=== PATIENT | female | born 1990 | race Caucasian/White ===

== ENCOUNTER → 2020-11-15 15:40 | Outpatient (CLI) | payer OTHER, SELFPAY ==
[2020-11-15 14:20] VITALS: BMI 27.7
[2020-11-15 15:55] LABS: Absolute Lymphocyte Count 2.31 X10^3/uL (0.83-4.51); Basophil# 0.06 X10^3/uL; Basophil% 0.7 % (0-1); Eosinophil# 0.12 X10^3/uL; Eosinophils% 1.5 % (0-5); Hematocrit 39.3 % (37-47); Hemoglobin 13.2 g/dL (12.0-15.0); Lymphocyte # 2.31 X10^3/ul (0.83-4.51); Lymphocyte % 28.4 % (19-41); Mean Corp Hgb Conc 33.6 g/dL (32-36); Mean Corpuscular Hgb 28.4 pg (27.0-32.0); Mean Corpuscular Volume 84.7 fL (81-99); Mean Platelet Vol. 10.4 fl (6.2-12.0); Monocyte# 0.63 X10^3/uL; Monocyte% 7.7 % (0-10); NRBC Flagged by Analyzer 0 % (0-5); Neutrophil % 61.5 % (47-70); Platelet Count 257 K/mm3 (150-450); RBC Distribution Width CV 12.3 % (11.6-14.6); RBC Distribution Width SD 37.9 fl (35.1-43.9); Red Blood Count 4.64 M/mm3 (4.2-5.4); White Blood Count 8.1 K/mm3 (4.4-11.0)
[2020-11-15 18:37] LABS: Amphetamine Urine VISTA NEGATIVE (<1000 ng/mL); Barbiturate Urine VISTA NEGATIVE (< 200 ng/mL); Benzodiazepine Urine VISTA NEGATIVE (< 200 ng/mL); Cocaine Urine VISTA NEGATIVE (< 300 ng/mL); Ecstacy Urine VISTA NEGATIVE (< 500 ng/mL); Methadone Urine VISTA NEGATIVE (< 300 ng/mL); PCP Urine VISTA NEGATIVE (< 25 ng/mL); THC Urine VISTA NEGATIVE (< 50 ng/mL); Vista UDS pH Range 5
[2020-11-16 09:20] LABS: HIV - WCH Non-Reactive (Nonreactive); Hepatitis B Surface Antigen Non-Reactive (Nonreactive); Hepatitis C Antibody Non-Reactive (Nonreactive); Rubella IgG Reactive (Nonreactive); Syphilis Antibodies Non-reactive
[2020-11-19 20:07] LABS: Chlamydia By Nucleic Acid AMP Negative (Negative)
[2020-11-19 20:32] LABS: Gonococcus By Nucleic Acid AMP Negative (Negative)
[2020-11-21 12:38] LABS: HPV APTIMA, High Risk Negative (Negative)
== END ==
PROVIDERS: PCP Family Medicine; Referring Provider Obstetrics & Gynecology; Visit Provider Obstetrics & Gynecology
DX: Z34.90 Encounter for supervision of normal pregnancy, unspecified, unspecified trimester (principal)
CPT/HCPCS: 36415; 80307; 85025; 86703; 86762; 86780; 86803; 86850; 86900; 86901; 87086; 87088; 87340; 87491; 87591; 87624; 88175; G0145

== ENCOUNTER → 2021-03-21 08:42 | Outpatient (CLI) | payer OTHER, SELFPAY ==
[2021-03-21 09:07] LABS: Basophil# 0.07 X10^3/uL; Basophil% 0.7 % (0-1); Eosinophil# 0.15 X10^3/uL; Eosinophils% 1.6 % (0-5); Hematocrit 33.2 % (37-47); Hemoglobin 11.5 g/dL (12.0-15.0); Lymphocyte % 16.8 % (19-41); Mean Corp Hgb Conc 34.6 g/dL (32-36); Mean Corpuscular Hgb 30.1 pg (27.0-32.0); Mean Corpuscular Volume 86.9 fL (81-99); Mean Platelet Vol. 10.2 fl (6.2-12.0); Monocyte# 0.66 X10^3/uL; Monocyte% 6.9 % (0-10); NRBC Flagged by Analyzer 0 % (0-5); Neutrophil # 6.95 X10^3/uL (2.7-7.7); Neutrophil % 73.2 % (47-70); Platelet Count 210 K/mm3 (150-450); RBC Distribution Width CV 13.2 % (11.6-14.6); RBC Distribution Width SD 41.4 fl (35.1-43.9); Red Blood Count 3.82 M/mm3 (4.2-5.4); White Blood Count 9.5 K/mm3 (4.4-11.0)
[2021-03-21 09:19] LABS: Glucose Challenge Gest 1H 50g 98 mg/dL (70-140)
== END ==
PROVIDERS: PCP Family Medicine; Referring Provider Obstetrics & Gynecology; Visit Provider Obstetrics & Gynecology
DX: Z13.1 Encounter for screening for diabetes mellitus (principal); Z34.00 Encounter for supervision of normal first pregnancy, unspecified trimester
CPT/HCPCS: 36415; 82950; 85025

== ENCOUNTER → 2021-04-04 12:30 | Outpatient (CLI) | payer OTHER, SELFPAY ==
--- NOTE | 2021-04-04 12:31 | US_ITS ---
STUDY: SECOND AND THIRD TRIMESTER OBSTETRICAL ULTRASOUND - LIMITED REASON FOR EXAM: Female, 31 years old growth, check ovarian cysts - pt 28 weeks LMP: 09/06/2020. PRIOR ULTRASOUND: None. TECHNIQUE: Transabdominal TECHNICAL QUALITY: Adequate. FINDINGS: There is a single intrauterine fetus. The fetus is in a cephalic presentation. There is demonstrated cardiac activity with a heart rate of 136 bpm. There is a normal amniotic fluid volume. The largest amniotic fluid pocket measures 6.7 cm. The amniotic fluid index ([place]) is 22.3 cm. The placenta is posterior in location and is not low lying. There are Grade 0 placental changes. The cervix measures 4.3 cm in length. BIOMETRY: BPD: 7.97 cm: 31 weeks, 6 days HC: 28.31 cm: 31 weeks, 0 days AC: 27.12 cm: 31 weeks, 1 days FL: 5.55 cm: 29 weeks, 1 days Age by LMP: 30 weeks, 0 days. BATSHEVA by LMP: 06/13/2021. age by current US: 30 weeks, 3 days. BATSHEVA by current US: 06/10/2021. Estimated weight: 1642 grams, +/- 246 grams, 66 percentile. The right ovary measures 4.8 cm x 2.3 cm x 3.1 cm. The left ovary measures 8.7 cm x 4.9 cm x 4.1 cm. Within it, there is a 7.5 cm x 7.6 cm by 3.1 cm complex cyst. US/OB Limited With Biometrics IMPRESSION: Single live intrauterine gestation with a mean gestational age of 30 weeks and 3 days. 7.5 cm x 7.6 cm x 3.1 cm left complex ovarian cyst. Electronically Signed: Justin Medina MD at 15:22 EDT , Service support ,
== END ==
PROVIDERS: PCP Family Medicine; Referring Provider Nurse Practitioner Women's Health; Visit Provider Nurse Practitioner Women's Health
DX: O34.83 Maternal care for other abnormalities of pelvic organs, third trimester (principal); N83.202 Unspecified ovarian cyst, left side; Z3A.30 30 weeks gestation of pregnancy
CPT/HCPCS: 76816

== ENCOUNTER → 2021-04-25 15:12 | Outpatient (CLI) | payer OTHER, SELFPAY ==
[2021-04-25 15:33] LABS: Absolute Lymphocyte Count 1.44 X10^3/uL (0.83-4.51); Basophil# 0.06 X10^3/uL; Basophil% 0.6 % (0-1); Eosinophil# 0.05 X10^3/uL; Eosinophils% 0.5 % (0-5); Hematocrit 36.6 % (37-47); Hemoglobin 12.4 g/dL (12.0-15.0); Lymphocyte # 1.44 X10^3/ul (0.83-4.51); Lymphocyte % 15.2 % (19-41); Mean Corp Hgb Conc 33.9 g/dL (32-36); Mean Corpuscular Hgb 29.5 pg (27.0-32.0); Mean Corpuscular Volume 87.1 fL (81-99); Mean Platelet Vol. 10.2 fl (6.2-12.0); Monocyte# 0.91 X10^3/uL; Monocyte% 9.6 % (0-10); NRBC Flagged by Analyzer 0 % (0-5); Neutrophil # 6.98 X10^3/uL (2.7-7.7); Neutrophil % 73.5 % (47-70); Platelet Count 212 K/mm3 (150-450); RBC Distribution Width CV 13.1 % (11.6-14.6); RBC Distribution Width SD 41.6 fl (35.1-43.9); White Blood Count 9.5 K/mm3 (4.4-11.0)
== END ==
PROVIDERS: PCP Family Medicine; Referring Provider Nurse Practitioner Women's Health; Visit Provider Nurse Practitioner Women's Health
DX: O26.899 Other specified pregnancy related conditions, unspecified trimester (principal); R10.2 Pelvic and perineal pain; Z3A.00 Weeks of gestation of pregnancy not specified
CPT/HCPCS: 36415; 85025

== ENCOUNTER → 2021-04-25 15:57 | Outpatient (CLI) | payer OTHER, SELFPAY ==
--- NOTE | 2021-04-25 15:58 | US_ITS ---
STUDY: SECOND AND THIRD TRIMESTER OBSTETRICAL ULTRASOUND - LIMITED REASON FOR EXAM: Female, 31 years old. Rule out ovarian torsion. Left lower quadrant pain. LMP: 09/06/2020. PRIOR ULTRASOUND: 04/04/2021 TECHNIQUE: Transabdominal TECHNICAL QUALITY: Adequate. FINDINGS: There is a single intrauterine fetus. The fetus is in a cephalic presentation. There is demonstrated cardiac activity with a heart rate of 1:30 bpm. There is a normal amniotic fluid volume. The largest amniotic fluid pocket measures 7.7 cm. The amniotic fluid index ([place]) is 20.38 cm. The placenta is posterior in location and is not low lying. There are Grade 1 placental changes. The cervix measures 4.1 cm in length. The right ovary measures 3.9 x 3.4 x 2.4 cm. And contains a complex 2.3 x 2.7 x 1.4 cm cyst. There is normal DOPPLER signal. The left ovary measures 6.3 x 4.5 x 2.8 cm. And contains a hypoechoic area measuring 5.5 x 3.9 x 2.3 cm. Question chocolate cyst. Normal vascularity on DOPPLER imaging Age by LMP: 33 weeks, 0 days. BATSHEVA by LMP: 06/13/2021. age by prior US: 33 weeks, 3 days. BATSHEVA by prior US: 06/10/2021. US/OB Limited (No Biometrics) IMPRESSION: 1. Prominent cystic changes of both ovaries. There is no evidence of torsion. 2. Live single intrauterine 33 weeks 3 days by prior ultrasound. 3. VERTEX presentation. 4. [place] of 20.38 cm. 5. Posterior grade 1 placenta. Electronically Signed: James Chan DO at 16:57 EDT Tel [phone], Service support ,
== END ==
PROVIDERS: PCP Family Medicine; Referring Provider Nurse Practitioner Women's Health; Visit Provider Nurse Practitioner Women's Health
DX: N83.202 Unspecified ovarian cyst, left side (principal)
CPT/HCPCS: 76815; 76817

== ENCOUNTER → 2021-05-16 11:37 | Outpatient (CLI) | payer OTHER, SELFPAY | PROVIDERS: PCP Family Medicine; Visit Provider Obstetrics & Gynecology | DX: Z34.93 Encounter for supervision of normal pregnancy, unspecified, third trimester (principal); Z3A.36 36 weeks gestation of pregnancy | CPT/HCPCS: 87081 ==

== ENCOUNTER 2021-06-20 19:05 | Inpatient (IN) | payer OTHER, SELFPAY ==
[2021-06-20 19:44] VITALS: BP 124/75; PULSE 109
[2021-06-20 19:45] VITALS: TEMP 37.5
[2021-06-20 19:46] VITALS: PULSE 109; O2SAT 96
[2021-06-20 19:48] VITALS: BMI 33.7
[2021-06-20] MEDS: Lactated Ringers 1,000 ML 50 ML IV (19:56)
[2021-06-20 20:25] LABS: Absolute Lymphocyte Count 2.47 X10^3/uL (0.83-4.51); Absolute Neutrophil Count 7.9 X10^3/uL (2.0-7.7); Basophil# 0.06 X10^3/uL; Basophil% 0.5 % (0-1); Eosinophil# 0.06 X10^3/uL; Eosinophils% 0.5 % (0-5); Hematocrit 34.8 % (37-47); Hemoglobin 12.6 g/dL (12.0-15.0); Lymphocyte # 2.47 X10^3/ul (0.83-4.51); Lymphocyte % 21.4 % (19-41); Mean Corp Hgb Conc 36.2 g/dL (32-36); Mean Corpuscular Hgb 30.8 pg (27.0-32.0); Mean Corpuscular Volume 85.1 fL (81-99); Mean Platelet Vol. 10.8 fl (6.2-12.0); Monocyte# 0.91 X10^3/uL; Monocyte% 7.9 % (0-10); NRBC Flagged by Analyzer 0 % (0-5); Neutrophil # 7.94 X10^3/uL (2.7-7.7); Neutrophil % 68.9 % (47-70); Platelet Count 235 K/mm3 (150-450); RBC Distribution Width CV 13.1 % (11.6-14.6); RBC Distribution Width SD 40.4 fl (35.1-43.9); Red Blood Count 4.09 M/mm3 (4.2-5.4); White Blood Count 11.5 K/mm3 (4.4-11.0)
[2021-06-20] MEDS: miSOPROStol 25 MCG TABLET VAGINAL (20:36)
[2021-06-20 21:04] VITALS: BP 121/79; PULSE 85; TEMP 37.1; O2SAT 98
[2021-06-21] VITALS (40 sets, daily range): BP systolic 95–146; BP diastolic 53–85; PULSE 65–111; TEMP 35.9–37.4; O2SAT 96–100
[2021-06-21] MEDS: miSOPROStol 50 MCG TABLET VAGINAL (00:38)
[2021-06-21] MEDS: 0.9% Normal Saline Single 100 ML IV.SOLN. INTRA-UTER (07:33)
[2021-06-21] MEDS: Oxytocin 30 units/NS 500 ml 30 UNITS/500 ML IV.SOLN IV (08:50)
[2021-06-21] MEDS: 0.9% Saline Lock 10 ML Syringe IV (08:50)
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
[2021-06-21] MEDS: Lactated Ringers 500 ML 999 ML IV ×3 (14:50→20:25)
[2021-06-21] MEDS: fentaNYL-bupivacaine (epidural) 100 ML BAG EPIDURAL ×2 (15:50→20:30)
[2021-06-21] MEDS: Lactated Ringers 1,000 ML 200 ML IV (18:41)
[2021-06-22] VITALS (24 sets, daily range): BP systolic 98–133; BP diastolic 51–75; PULSE 81–169; RESP 16; TEMP 35.8–37.9; O2SAT 96–100
[2021-06-22] MEDS: fentaNYL-bupivacaine (epidural) 100 ML BAG EPIDURAL ×2 (00:59→06:46)
--- NOTE | 2021-06-22 03:57 | EX.PCM.OBRPT ---
Assessment & Plan (1) : QUALIFIERS: Weeks of gestation: 40 weeks Qualified Code(s): Z3A.40 - 40 weeks gestation of COMMENT: declined genetic, ntd and carrier. anatomy reviewed. (2) Supervision of normal first : QUALIFIERS: Trimester: third trimester Qualified Code(s): Z34.03 - Encounter for supervision of normal first , third trimester COMMENT: PRR BATSHEVA: 06/13/2021 surprise Spouse: Brayan (3) Echogenic focus of heart of fetus affecting antepartum care of mother: QUALIFIERS: Fetus number: single or unspecified fetus Qualified Code(s): O35.8XX0 - Maternal care for other (suspected) abnormality and damage, not applicable or unspecified COMMENT: declined nipt (4) Left ovarian cyst: COMMENT: rpt US showed stable now 5 cm suspect endometrioma, preivous 7.8cm, growth nl, plan fu removal 6 week+ (5) Pelvic pain affecting : COMMENT: tylenol, flexeril PRN, chiropractor and massage therapy recommended, nl ovarian blood flow on US. reviewed may need ct abdmn pelvis if recurrent (6) Encounter for induction of labor: COMMENT: plan 41 week IOL cytotec then fb/pitocin. epi PRN (7) Vaginal delivery: COMMENT: iol postdates SM Maternal Data Information BATSHEVA Calculator Estimated Delivery Date Method Current WG Current Estimate 06/13/21 LMP (Certain) 41w 2d Vaginal Delivery Maternal Presentation Maternal Presentation: Medically Indicated Induction Maternal Presentation: IOL postdates Type of Induction: Pitocin, Marcus Bulb and Cytotec Operative Information Date of Procedure: 06/22/21 Pre-Operative Diagnosis: IOL postdates Post-Operative Diagnosis: same Surgery / Procedure Performed: Spontaneous Vaginal Delivery Type of Anesthesia: Epidural Special Medications: none Estimated Blood Loss: 300 Fluids Replaced: crystalloid Findings Description of Procedure: Patient began pushing and after almost 4 hours of pushing there was signifciant swellign in the perineum so a right mediolateral episiotomy was cut and she delivered the head in the [YARED] presentation. The head was delivered atraumatically . The anterior and posterior shoulders delivered without complication followed by the rest of the infant and the was placed on the maternal abdomen. Delayed cord clamping was employed for approximately 60 seconds. Cord was clamped and cut and gentle traction was applied to the cord and the placenta delivered spontaneously immediately following it was noted to be intact with three-vessel cord. The perineum and vagina were inspected and noted to have no extension of the episiotomy and therefore it was repaired in the usual fashion with 3-0 Vicryl Rapide. EBL was 300. Patient and tolerated delivery well. Presentation: YARED Amniotic Membrane Rupture Type: Artificial Amniotic Fluid Description: Clear Placental Delivery Description: Spontaneous Placenta Disposition: [facility] Cord Vessel Description: 3 Vessels Cord Entanglement: None Infant A Gender: Female Delayed Cord Clamping: Yes Post Vaginal Delivery Medications Given After Delivery: IV Pitocin Episiotomy Description: Right Mediolateral Laceration: Right Mediolateral and 2nd degree Complication Complications: None Procedures Urinary/Genital [id number]: [id number] Vaginal Delivery [facility]
--- NOTE | 2021-06-22 04:00 | PCM.DC ---
Discharge Instructions Diet Discharge Diet: No restrictions Activity Discharge Activity: Return to Normal Activity, May Not Drive (while taking narcotic pain medications.) and May Shower May resume sexual activity in: 4-6 weeks Dressing / Incision Call your doctor if your incision/area has: Continuous Slow Oozing, Sudden Increased Bleeding, Increased Pain/ Swelling, Increased Redness and Foul Smelling Discharge Follow Up Care Please Follow Up With: Tiffany Scott MD When: Call [phone] to make an appointment with your doctor in 6 weeks. If you had elevated blood pressure or 4th degree laceration, you will need to be seen in 2 weeks. Test Results: Test results from this visit will be discussed in further detail at your follow-up appointment, if applicable. Discharge Plan Admission Admit Date/Time: 06/20/21 19:05 Primary Reason for Your Visit: vaginal delivery Attending Provider: Tiffany Scott Primary Care Provider: Jose Allen Discharge Orders/Prescriptions Prescriptions: No Action DHA 200 mg capsule 200 mg PO DAILY RF: 0 Referrals / Follow Up: Jose Allen MD [Primary Care Provider] - Disposition Disposition (needs filled in before D/C Order can be placed): Home, Self Care
[2021-06-22] MEDS: Lactated Ringers 1,000 ML 200 ML IV ×2 (05:08)
[2021-06-22] MEDS: Oxytocin 30 units/NS 500 ml 30 UNITS/500 ML IV.SOLN 334 UNITS IV (07:46)
[2021-06-22] MEDS: Acetaminophen 500 MG Tablet PO (08:26)
[2021-06-22] MEDS: Naproxen 500 MG Tablet PO ×2 (10:16→18:00)
[2021-06-22] MEDS: Benzocaine/Lanolin/Aloe Vera 1 SPRAY EACH TOPICAL (10:51)
[2021-06-22] MEDS: Acetaminophen 500 MG Tablet 1000 MG PO ×2 (14:05→20:31)
[2021-06-23] VITALS (9 sets, daily range): BP systolic 93–127; BP diastolic 51–65; PULSE 73–86; RESP 14–16; TEMP 36.1–36.6; O2SAT 98–99
[2021-06-23] MEDS: Naproxen 500 MG Tablet PO (07:05)
--- NOTE | 2021-06-23 07:05 | PCM.PN.OB ---
Subjective Subjective Patient doing well without complaints. Tolerating PO. Ambulating and voiding without difficulty. feeding well. Denies chest pain, shortness of breath, calf pain/swelling, fevers, chills, lightheadedness. Objective Data Objective Data Vital Signs: Vital Signs Temp Pulse Resp BP Pulse Ox 97.9 F 83 16 127/62 H 98 06/23/21 04:45 06/23/21 04:46 06/23/21 04:45 06/23/21 04:46 06/22/21 08:01 Oxygen Delivery Method Room Air Weight: 184 lb 12.8 oz Body Mass Index (BMI) 33.7 Intake & Output: Intake and Output for Last 24 Hours 06/21/21 06/22/21 06/23/21 23:59 23:59 23:59 Intake Total 2869.87 / 3483.20 2759.29 / 2759.29 Output Total 500 / 500 950 / 950 Balance 2369.87 / 2983.20 1809.29 / 1809.29 Lab / Micro Data Result Diagrams: 06/20/21 19:55 ROS Constitutional Constitutional: Reports systems reviewed and no addt'l complaints, except as documented Cardiovascular Cardiovascular: Reports systems reviewed and no addt'l complaints, except as documented Respiratory/Chest Respiratory/Chest: Reports systems reviewed and no addt'l complaints, except as documented Gastrointestinal Gastrointestinal: Reports systems reviewed and no addt'l complaints, except as documented Physical Exam Const alert, oriented x3 and no apparent distress HEENT Head and Scalp: atraumatic Resp normal respiratory effort GI soft to palpation and non-tender Bimanual Exam - Vag & Uterus: uterus non-tender Uterus Palpation: uterus fundus firm (below Umbilicus) Assessment & Plan (1) Vaginal delivery: COMMENT: iol postdates SM girl Carol PLAN: s/p PPD # 1 1. routine post delivery care 2. breast feeding- support given 3. rh positive 4. rubella immune
== END 2021-06-23 16:20 | disposition home or self-care (01) | DRG 807 ==
PROVIDERS: Obstetrics & Gynecology; Admitting Provider Obstetrics & Gynecology; PCP Family Medicine; Visit Provider Obstetrics & Gynecology
DX: O48.0 Post-term pregnancy (principal); Z37.0 Single live birth; Z3A.41 41 weeks gestation of pregnancy; O35.8XX0 Maternal care for other (suspected) fetal abnormality and damage, not applicable or unspecified; O34.83 Maternal care for other abnormalities of pelvic organs, third trimester; N83.202 Unspecified ovarian cyst, left side; Z87.891 Personal history of nicotine dependence
CPT/HCPCS: 59025; 59050; 85025; 86850; 86900; 86901; 99218; J7120; A4216; G0378

== ENCOUNTER → 2022-01-28 | Outpatient (CLI) | payer OTHER, SELFPAY ==
--- NOTE | 2022-01-28 12:37 | US_ITS ---
STUDY: ULTRASOUND OF THE FEMALE PELVIS - COMPLETE REASON FOR EXAM: Female, 32 years old. OvarIan Cyst LMP: 01/19/2022. TECHNIQUE: Transabdominal and Transvaginal TECHNICAL QUALITY: Adequate. COMPARISON: Comparison is made with prior examination 04/25/2021. FINDINGS: The uterus is anteverted and is tilted to the left side of the pelvis. The uterus measures 7.9 cm x 5.9 cm x 4.1 cm. Normal uterine cervix. The endometrium measures 11 mm in thickness, and is hyperechoic. There is no demonstrated endometrial mass. There is no demonstrated myometrial mass. I.U.D. - The patient does not have an I.U.D. The right ovary is visualized. The right ovary measures 3.5 cm x 3.1 cm x 2.5 cm. In dominant follicle is seen within the right ovary measuring 1.5 cm x 1.5 cm x 1.1 cm. The previously seen cyst is not seen at this time. There is no visualized right adnexal mass or complex lesion. There is normal arterial and normal venous vascularity. The left ovary is visualized. The left ovary measures 4.1 cm x 4.6 cm x 2.3 cm. Persistent cyst in the left ovary measuring 2.5 cm x 2.6 cm x 1.8 cm. This has decreased in size as compared to prior study. Low-level echoes are seen within it. There is no visualized left adnexal mass or complex lesion. There is normal arterial and normal venous vascularity. There is no fluid in the cul-de-sac. The pre void volume of the bladder was 21 ml. US/Transvaginal Non- IMPRESSION: Interval decrease in size of the previously seen bilateral ovarian complex cysts more prominent on the left side. Electronically Signed: Justin Medina MD at 15:14 EDT ,
--- NOTE | 2022-01-28 12:37 | US_ITS ---
STUDY: ULTRASOUND OF THE FEMALE PELVIS - COMPLETE REASON FOR EXAM: Female, 32 years old. OvarIan Cyst LMP: 01/19/2022. TECHNIQUE: Transabdominal and Transvaginal TECHNICAL QUALITY: Adequate. COMPARISON: Comparison is made with prior examination 04/25/2021. FINDINGS: The uterus is anteverted and is tilted to the left side of the pelvis. The uterus measures 7.9 cm x 5.9 cm x 4.1 cm. Normal uterine cervix. The endometrium measures 11 mm in thickness, and is hyperechoic. There is no demonstrated endometrial mass. There is no demonstrated myometrial mass. I.U.D. - The patient does not have an I.U.D. The right ovary is visualized. The right ovary measures 3.5 cm x 3.1 cm x 2.5 cm. In dominant follicle is seen within the right ovary measuring 1.5 cm x 1.5 cm x 1.1 cm. The previously seen cyst is not seen at this time. There is no visualized right adnexal mass or complex lesion. There is normal arterial and normal venous vascularity. The left ovary is visualized. The left ovary measures 4.1 cm x 4.6 cm x 2.3 cm. Persistent cyst in the left ovary measuring 2.5 cm x 2.6 cm x 1.8 cm. This has decreased in size as compared to prior study. Low-level echoes are seen within it. There is no visualized left adnexal mass or complex lesion. There is normal arterial and normal venous vascularity. There is no fluid in the cul-de-sac. The pre void volume of the bladder was 21 ml. US/Pelvic (Non ) IMPRESSION: Interval decrease in size of the previously seen bilateral ovarian complex cysts more prominent on the left side. Electronically Signed: Justin Medina MD at 15:14 EDT ,
== END | disposition home or self-care (01) ==
LOC: US 12:35
PROVIDERS: PCP Family Medicine; Referring Provider Obstetrics & Gynecology; Visit Provider Obstetrics & Gynecology
DX: N83.209 Unspecified ovarian cyst, unspecified side (principal)
CPT/HCPCS: 76830; 76856

== ENCOUNTER → 2023-01-30 | Outpatient (CLI) | payer OTHER, SELFPAY ==
[2023-01-30 10:21] LABS: Absolute Neutrophil Count 3.1 X10^3/uL (2.0-7.7); Basophil# 0.06 X10^3/uL; Eosinophil# 0.04 X10^3/uL; Eosinophils% 0.7 % (0-5); Hematocrit 38.7 % (37-47); Hemoglobin 13.1 g/dL (12.0-15.0); Lymphocyte % 37.4 % (19-41); Mean Corp Hgb Conc 33.9 g/dL (32-36); Mean Corpuscular Hgb 28.4 pg (27.0-32.0); Mean Corpuscular Volume 83.9 fL (81-99); Monocyte# 0.45 X10^3/uL; Monocyte% 7.7 % (0-10); NRBC Flagged by Analyzer 0 % (0-5); Neutrophil # 3.12 X10^3/uL (2.7-7.7); Platelet Count 247 K/mm3 (150-450); RBC Distribution Width CV 12.2 % (11.6-14.6); RBC Distribution Width SD 37.3 fl (35.1-43.9); Red Blood Count 4.61 M/mm3 (4.2-5.4); White Blood Count 5.9 K/mm3 (4.4-11.0)
[2023-01-30 11:57] LABS: HIV - WCH Non-Reactive (Nonreactive); Hepatitis B Surface Antigen Non-Reactive (Nonreactive); Hepatitis C Antibody Non-Reactive (Nonreactive); Rubella IgG Reactive (Nonreactive); Syphilis Antibodies Non-reactive
[2023-02-02 21:12] LABS: Chlamydia By Nucleic Acid AMP Negative (Negative); Gonococcus By Nucleic Acid AMP Negative (Negative)
== END | disposition home or self-care (01) ==
PROVIDERS: PCP Family Medicine; Referring Provider Obstetrics & Gynecology; Visit Provider Obstetrics & Gynecology
DX: Z34.01 Encounter for supervision of normal first pregnancy, first trimester (principal)
CPT/HCPCS: 36415; 85025; 86703; 86762; 86780; 86803; 86850; 86900; 86901; 87086; 87088; 87340; 87491; 87591

== ENCOUNTER 2023-02-09 09:36 | Emergency (ER) | payer OTHER, SELFPAY ==
[2023-02-09 09:38] VITALS: BP 120/81; PULSE 85; RESP 14; TEMP 36.8; O2SAT 100; BMI 28.5
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
== END 2023-02-09 11:16 | disposition home or self-care (01) ==
PROVIDERS: Emergency Provider Emergency Medicine; Visit Provider Emergency Medicine
DX: O9A.211 Injury, poisoning and certain other consequences of external causes complicating pregnancy, first trimester (principal); S16.1XXA Strain of muscle, fascia and tendon at neck level, initial encounter; Z3A.11 11 weeks gestation of pregnancy; V89.2XXA Person injured in unspecified motor-vehicle accident, traffic, initial encounter; W22.11XA Striking against or struck by driver side automobile airbag, initial encounter; Y92.410 Unspecified street and highway as the place of occurrence of the external cause
CPT/HCPCS: 72040; 99284

== ENCOUNTER → 2023-06-09 | Outpatient (CLI) | payer OTHER, SELFPAY ==
[2023-06-09 10:13] LABS: Absolute Neutrophil Count 5.6 X10^3/uL (2.0-7.7); Basophil# 0.07 X10^3/uL; Basophil% 0.8 % (0-1); Eosinophil# 0.06 X10^3/uL; Eosinophils% 0.7 % (0-5); Hematocrit 35.1 % (37-47); Lymphocyte % 23.1 % (19-41); Mean Corp Hgb Conc 34.2 g/dL (32-36); Mean Corpuscular Hgb 29.6 pg (27.0-32.0); Mean Corpuscular Volume 86.7 fL (81-99); Monocyte# 0.56 X10^3/uL; Monocyte% 6.8 % (0-10); NRBC Flagged by Analyzer 0 % (0-5); Neutrophil # 5.59 X10^3/uL (2.7-7.7); Neutrophil % 67.9 % (47-70); Platelet Count 211 K/mm3 (150-450); RBC Distribution Width SD 41.1 fl (35.1-43.9); Red Blood Count 4.05 M/mm3 (4.2-5.4); White Blood Count 8.2 K/mm3 (4.4-11.0)
[2023-06-09 10:22] LABS: Glucose Challenge Gest 1H 50g 92 mg/dL (70-140)
[2023-06-09 11:14] LABS: HIV - WCH Non-Reactive (Nonreactive); Syphilis Antibodies Non-reactive
== END | disposition home or self-care (01) ==
PROVIDERS: Referring Provider Advanced Practice Midwife; Visit Provider Advanced Practice Midwife
DX: Z34.90 Encounter for supervision of normal pregnancy, unspecified, unspecified trimester (principal)
CPT/HCPCS: 36415; 82950; 85025; 86703; 86780

== ENCOUNTER → 2023-08-07 | Outpatient (CLI) | payer OTHER, SELFPAY ==
--- OUTSIDE RECORDS SUMMARY | 2023-08-07 17:04 | XMS RPT_ITS | CCD ---
Author Name Unknown Address [address] [place] [address] Organization [facility] Care Team Providers Care Copper Roller Handler Printing Name Role Phone BELKIS AURORA Unavailable Unavailable FRANTZ MARTINEZ Unavailable Unavailable JUAN SONI, FRANTZ [place] Primary Care Physician ([facility] )[phone] ZAHRAA SONI, GREG Attending Unavailable FRANTZ MARTINEZ MD Primary Care Unavailable KRISTY DALTON Referring Unavailab FRANTZ Perez Primary Care Unavailable NAVYA HOLMAN Attending Unavailable Medications Current Medications Medication Drug Class(es) Dates Sig (Normalized) Sig (Original) Multivitamin preparation (1 source) Start: 08-08-2020 take 1 tablet by mouth once daily Multivitamin Dose = 1 tab(s), Oral, Daily, 0 Refill(s) Start Date: 08/08/20 Status: Ordered Completed/Discontinued Medications Medication Drug Class(es) Dates Sig (Normalized) Sig (Original) miconazole nitrate 20 mg/ml vaginal cream (1 source) Azole Antifungal Start: 11-07-2022 Monistat 7 vaginal cream with applicator Dose = 1 appl, Vaginal, qHS, # 30 gram(s), 0 Refill(s), Pharmacy: [facility] #[id number], Recurrent vaginitis Subfertility, female, 160, cm, 11/07/22 10:16:00 EDT, Height Start Date: 11/07/22 Status: Ordered Problems Active Problems Problem Classification Problem Date Documented Da te Episodic/Chronic Female infertility (1 source) Female infertility 08-15-2020 Chronic Past or Other Problems Problem Classification Problem Date Documented Da te Episodic/Chronic Unclassified (2 sources) High risk heterosexual behavior; Translations: [High risk heterosexual behavior] Onset: 04-09-2017 Episodic Results Test Name Value Interpretation Reference Range Facil ity Encounters Encounter Date Encounter Type Care Provider Facility Start: 04-16-2023 End: 04-16-2023 ambulatory K[facility]STY Cochran [facility] Start: 11-07-2022 End: 11-12-2022 ambulatory GREG VITAL MD Facility:[facility] Start: 11-07-2022 End: 11-11-2022 Outreach Lab GREG VITAL MD [facility] Start: 04-09-2017 End: 04-14-2017 Ambulatory AURORA BELKIS Facility:[facility] Procedures Date Procedure Procedure Detail Performing Clinician None (qualifier value) ALEX VITAL MD Payers Date Payer Category Payer Unknown [id number] 2017 Medicaid [id number] 1990 Unknown [id number] 1990 Unknown [id number] Social History Date Type Detail Facility Start: 08-08-2020 Tobacco smoking status Never s moked tobacco (finding) [facility] Sex Assigned At Sex [facility] Clinical Note 11-08-2022 Note Date & Type Note Facility 11-08-2022 Note . MICRO - Microbiology PROCEDURE: Affirm Pathogens DNA Direct Probe [*1] SOURCE: Vaginal Fluid BODY SITE: Vaginal Wall COLLECTED DATE/TIME: 11/07/2022 14:16 EDT RECEIVED DATE/TIME: 11/07/2022 18:47 EDT START DATE/TIME: 11/07/2022 18:47 EDT FREE TEXT SOURCE: FINAL REPORTS Final Report [] Verified Date/Time/Personnel: 11/08/2022 12:22 EDT Gardnerella vaginalis DNA Probe Negative Trichomonas vaginalis DNA Probe Negative Shama species DNA Probe Negative Performing Locations *1: This test was performed at: [facility], [address] [place] [address], [phone]- , [facility] ([place]) Evaluation + Plan note Radiology Note Date & Type Note Facility Evaluation + Plan note Future Appointments Appointment Date:11/21/2022 09:45:00 AM Scheduled Provider:GREG VITAL MD Location:[facility] Appointment Type: OV Diagnostic Tests PendingHSV by PCR 11/07/22 Future Scheduled TestsCT Head or Brain w/o Contrast 11/13/21CT Soft Tissue Neck w/o Contrast 11/13/21 [facility] Hospital course Narrative Note Date & Type Note Facility Hospital course Narrative No data available for this section [facility] Hospital Discharge instructions Note Date & Type Note Facility Hospital Discharge instructions No data available for this section [facility] Progress note Note Date & Type Note Facility Progress note No data available for this section [facility] Summary Purpose Family History No Family History Records FoundNo Family History Records FoundNo Family History Records Found Advance Directives No Advanced Directives Records FoundNo Advanced Directives Records FoundNo Advanced Directives Records Found Additional Source Comments INFORMATION SOURCE (unrecogn ized section and content) DATE CREATED AUTHOR AUTHOR'S ORGANIZ ATION 11/14/2022 [facility] ([place]) DATE CREATED AUTHOR AUTHOR'S ORGANIZ ATION 04/19/2023 [facility] Patient Care team informatio n (unrecognized section and content) Care Team Personnel Name: FRANTZ MARTINEZ MD Position: P4 Physician - Primary Care Member Role: Primary Care Physician Address: Address: [address] [facility] Physicians [place], [place] [address] Care Team Related Persons Name: KEY ECHEVARRIA FOR RECORDS PERTAINING TO PATIENTS WHO ARE OR HAVE BEEN ENROLLED IN A CHEMICAL DEPENDENCY/SUBSTANCEABUSE PROGRAM, SOME INFORMATION MAY BE OMITTED. This clinical summary was aggregated from multiple sources. Caution should be exercised in using it in the provision of clinical care. This summary normalizes information from multiple sources, and as a consequence, information in this document may materially change the coding, format and clinical context of patient data. In addition, data may be omitted in some cases. CLINICAL DECISIONS SHOULD BE BASED ON THE PRIMARY CLINICAL RECORDS. [facility] [employer] [facility]. provides no warranty or guarantee of the accuracy or completeness of information in this document.
== END | disposition home or self-care (01) ==
LOC: LABSPEC 17:01
PROVIDERS: Referring Provider Obstetrics & Gynecology; Visit Provider Obstetrics & Gynecology
DX: Z34.90 Encounter for supervision of normal pregnancy, unspecified, unspecified trimester (principal)
CPT/HCPCS: 87081

== ENCOUNTER → 2023-08-21 | Outpatient (CLI) | payer OTHER, SELFPAY ==
--- OUTSIDE RECORDS SUMMARY | 2023-08-21 17:54 | XMS RPT_ITS | CCD ---
Author Name Unknown Address [address] [place] [address] Organization [facility] Care Team Providers Care Trials Manager Name Role Phone BELKIS AURORA Unavailable Unavailable FRANTZ MARTINEZ Unavailable Unavailable JUAN SONI, FRANTZ [place] Primary Care Physician ([facility] )[phone] ZAHRAA SONI, GREG Attending Unavailable FRANTZ MARTINEZ [...] qHS, # 30 gram(s), 0 Refill(s), Pharmacy: [facility] #[id number], Recurrent vaginitis Subfertility, female, 160, cm, 11/07/22 [...] End: 11-11-2022 Outreach Lab GREG VITAL MD [facility] Start: 04-09-2017 End: 04-14-2017 Ambulatory AURORA BELKIS Facility:[facility] Procedures Date Procedure Procedure Detail Performing Clinician None (qualifier value) ALEX VITAL MD Payers Date Payer Category Payer Unknown [id number] 2017 Medicaid [id number] 1990 Unknown [id number] 1990 Unknown [id number] Social History Date Type Detail Facility Start: 08-08-2020 Tobacco smoking status Never s moked tobacco (finding) [facility] Sex Assigned At Sex [facility] Clinical Note 11-08-2022 Note Date & [...] Locations *1: This test was performed at: [facility], [address] [place] [address], [phone]- , [facility] ([place]) Evaluation + Plan note Radiology Note Date & Type Note Facility Evaluation + Plan note Future Appointments Appointment Date:11/21/2022 09:45:00 AM Scheduled Provider:GREG VITAL MD Location:[facility] Appointment Type: OV Diagnostic Tests PendingHSV by PCR 11/07/22 Future Scheduled TestsCT Head or Brain w/o Contrast 11/13/21CT Soft Tissue Neck w/o Contrast 11/13/21 [facility] Hospital course Narrative Note Date & Type Note Facility Hospital course Narrative No data available for this section [facility] Hospital Discharge instructions Note Date & Type Note Facility Hospital Discharge instructions No data available for this section [facility] Progress note Note Date & Type Note Facility Progress note No data available for this section [facility] Summary Purpose Family History No Family History Records FoundNo Family History Records FoundNo Family History Records Found Advance Directives No Advanced Directives Records FoundNo Advanced Directives Records FoundNo Advanced Directives Records Found Additional Source Comments INFORMATION SOURCE (unrecogn ized section and content) DATE CREATED AUTHOR AUTHOR'S ORGANIZ ATION 11/14/2022 [facility] ([place]) DATE CREATED AUTHOR AUTHOR'S ORGANIZ ATION 04/19/2023 [facility] Patient Care team informatio n (unrecognized section and content) Care Team Personnel Name: FRANTZ MARTINEZ MD Position: P4 Physician - Primary Care Member Role: Primary Care Physician Address: Address: [address] [facility] Phys[facility] [place], [place] [address] Care Team Related Persons Name: KEY ECHEVARRIA [...] BE BASED ON THE PRIMARY CLINICAL RECORDS. [employer] [facility]. provides no warranty or guarantee of the accuracy or completeness of information in this document.
== END | disposition home or self-care (01) ==
PROVIDERS: Referring Provider Advanced Practice Midwife; Visit Provider Advanced Practice Midwife
DX: Z34.01 Encounter for supervision of normal first pregnancy, first trimester (principal)
CPT/HCPCS: 87081

== ENCOUNTER 2023-09-11 03:30 | Inpatient (IN) | payer OTHER, SELFPAY ==
[2023-09-11] VITALS (79 sets, daily range): BP systolic 92–138; BP diastolic 55–81; PULSE 62–188; RESP 18; TEMP 36.1–37.1; O2SAT 80–99; BMI 36.8
--- OUTSIDE RECORDS SUMMARY | 2023-09-11 03:11 | XMS RPT_ITS | CCD ---
Author Name Unknown Address [email or web address] [place] [address] Organization [facility] Care Team Providers Care Oil Heaterman Name Role Phone BELKIS AURORA Unavailable Unavailable FRANTZ MARTINEZ Unavailable Unavailable JUAN SONI, FRANTZ [place] Primary Care Physician ([facility] )[phone] ZAHRAA SONI, GREG Attending Unavailable FRANTZ MARTINEZ [...] qHS, # 30 gram(s), 0 Refill(s), Pharmacy: [facility] #[id number], Recurrent vaginitis Subfertility, female, 160, cm, 11/07/22 [...] End: 11-11-2022 Outreach Lab GREG VITAL MD [facility] Start: 04-09-2017 End: 04-14-2017 Ambulatory AURORA BELKIS Facility:[facility] Procedures Date Procedure Procedure Detail Performing Clinician None (qualifier value) ALEX VITAL MD Payers Date Payer Category Payer Unknown [id number] 2017 Medicaid [id number] 1990 Unknown [id number] 1990 Unknown [id number] Social History Date Type Detail Facility Start: 08-08-2020 Tobacco smoking status Never s moked tobacco (finding) [facility] Sex Assigned At Sex [facility] Clinical Note 11-08-2022 Note Date & [...] Locations *1: This test was performed at: [facility], [address] [place] [address], [phone]- , [facility] ([place]) Evaluation + Plan note Radiology Note Date & Type Note Facility Evaluation + Plan note Future Appointments Appointment Date:11/21/2022 09:45:00 AM Scheduled Provider:GREG VITAL MD Location:[facility] Appointment Type: OV Diagnostic Tests PendingHSV by PCR 11/07/22 Future Scheduled TestsCT Head or Brain w/o Contrast 11/13/21CT Soft Tissue Neck w/o Contrast 11/13/21 [facility] Hospital course Narrative Note Date & Type Note Facility Hospital course Narrative No data available for this section [facility] Hospital Discharge instructions Note Date & Type Note Facility Hospital Discharge instructions No data available for this section [facility] Progress note Note Date & Type Note Facility Progress note No data available for this section [facility] Summary Purpose Family History No Family History Records FoundNo Family History Records FoundNo Family History Records Found Advance Directives No Advanced Directives Records FoundNo Advanced Directives Records FoundNo Advanced Directives Records Found Additional Source Comments INFORMATION SOURCE (unrecogn ized section and content) DATE CREATED AUTHOR AUTHOR'S ORGANIZ ATION 11/14/2022 [facility] ([place]) DATE CREATED AUTHOR AUTHOR'S ORGANIZ ATION 04/19/2023 [facility] Patient Care team informatio n (unrecognized section and content) Care Team Personnel Name: FRANTZ MARTINEZ MD Position: P4 Physician - Primary Care Member Role: Primary Care Physician Address: Address: [address] [facility] Phys[facility] [place], [place] [address] Care Team Related Persons Name: KEY [...] BE BASED ON THE PRIMARY CLINICAL RECORDS. [facility] [employer] [facility]. provides no warranty or guarantee of the accuracy or completeness of information in this document.
--- OUTSIDE RECORDS SUMMARY | 2023-09-11 03:34 | XMS RPT_ITS | CCD ---
Author Name Unknown Address [address] [place] [address] Organization [facility] Care Team Providers Care Body Maker Name Role Phone BELKIS AURORA Unavailable Unavailable FRANTZ MARTINEZ Unavailable Unavailable JUAN SONI, FRANTZ [place] Primary Care Physician ([facility] )[phone] ZAHRAA SONI, GREG Attending Unavailable FRANTZ MARTINEZ [...] qHS, # 30 gram(s), 0 Refill(s), Pharmacy: [facility] #[id number], Recurrent vaginitis Subfertility, female, 160, cm, 11/07/22 [...] End: 11-11-2022 Outreach Lab GREG VITAL MD [facility] Start: 04-09-2017 End: 04-14-2017 Ambulatory AURORA BELKIS Facility:[facility] Procedures Date Procedure Procedure Detail Performing Clinician None (qualifier value) ALEX VITAL MD Payers Date Payer Category Payer Unknown [id number] 2017 Medicaid [id number] 1990 Unknown [id number] 1990 Unknown [id number] Social History Date Type Detail Facility Start: 08-08-2020 Tobacco smoking status Never s moked tobacco (finding) [facility] Sex Assigned At Sex [facility] Clinical Note 11-08-2022 Note Date & [...] Locations *1: This test was performed at: [facility], [address] [place] [address], [phone] , [facility] ([place]) Evaluation + Plan note Radiology Note Date & Type Note Facility Evaluation + Plan note Future Appointments Appointment Date:11/21/2022 09:45:00 AM Scheduled Provider:GREG VITAL MD [facility] Appointment Type: OV Diagnostic Tests PendingHSV by PCR 11/07/22 Future Scheduled TestsCT Head or Brain w/o Contrast 11/13/21CT Soft Tissue Neck w/o Contrast 11/13/21 [facility] Hospital course Narrative Note Date & Type Note Facility Hospital course Narrative No data available for this section [facility] Hospital Discharge instructions Note Date & Type Note Facility Hospital Discharge instructions No data available for this section [facility] Progress note Note Date & Type Note Facility Progress note No data available for this section [facility] Summary Purpose Family History No Family History Records FoundNo Family History Records FoundNo Family History Records Found Advance Directives No Advanced Directives Records FoundNo Advanced Directives Records FoundNo Advanced Directives Records Found Additional Source Comments INFORMATION SOURCE (unrecogn ized section and content) DATE CREATED AUTHOR AUTHOR'S ORGANIZ ATION 11/14/2022 [facility] ([place]) DATE CREATED AUTHOR AUTHOR'S ORGANIZ ATION 04/19/2023 [facility] Patient Care team informatio n (unrecognized section and content) Care Team Personnel Name: FRANTZ MARTINEZ MD Position: P4 Physician - Primary Care Member Role: Primary Care Physician Address: Address: [address] [facility] Physicians [place], [place] [address] Care Team Related Persons Name: KEY [...] BE BASED ON THE PRIMARY CLINICAL RECORDS. [facility] [employer] [facility]. provides no warranty or guarantee of the accuracy or completeness of information in this document.
[2023-09-11] MEDS: Lactated Ringers 1,000 ML 200 ML IV ×2 (04:00→10:15)
[2023-09-11] MEDS: LACTATED RINGERS 500 ML 999 ML IV ×3 (04:05→12:06)
[2023-09-11 04:18] LABS: Absolute Lymphocyte Count 2.34 X10^3/uL (0.83-4.51); Basophil# 0.07 X10^3/uL; Basophil% 0.7 % (0-1); Eosinophil# 0.07 X10^3/uL; Eosinophils% 0.7 % (0-5); Hematocrit 35.9 % (37-47); Lymphocyte # 2.34 X10^3/ul (0.83-4.51); Lymphocyte % 22.6 % (19-41); Mean Corp Hgb Conc 33.4 g/dL (32-36); Mean Corpuscular Hgb 27.5 pg (27.0-32.0); Mean Corpuscular Volume 82.3 fL (81-99); Mean Platelet Vol. 10.9 fl (6.2-12.0); Monocyte# 0.79 X10^3/uL; Monocyte% 7.6 % (0-10); NRBC Flagged by Analyzer 0 % (0-5); Neutrophil # 7.02 X10^3/uL (2.7-7.7); Neutrophil % 67.7 % (47-70); Platelet Count 234 K/mm3 (150-450); RBC Distribution Width CV 13.3 % (11.6-14.6); RBC Distribution Width SD 39.6 fl (35.1-43.9); Red Blood Count 4.36 M/mm3 (4.2-5.4); White Blood Count 10.4 K/mm3 (4.4-11.0)
[2023-09-11] MEDS: fentaNYL-bupivacaine (epidural) 100 ML BAG EPIDURAL ×2 (05:00→09:36)
[2023-09-11] MEDS: Ondansetron 4 MG/2 ML Vial IV ×2 (06:54→12:47)
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
[2023-09-11 09:29] LABS: Syphilis Antibodies Non-reactive
[2023-09-11] MEDS: CHLORHEXIDINE GLUC 2% CLOTH 1 EACH TOWELETTE TOPICAL (11:11)
[2023-09-11] MEDS: Oxytocin 15 Units/NS 250ml 15 UNITS/250 ML IV.SOLN 2 UNITS IV (11:16)
--- NOTE | 2023-09-11 13:42 | OP.PCM_ITS ---
Assessment & Plan (1) (spontaneous vaginal delivery): COMMENT: IAL 41weeks JOSELUIS Yevgeniy Maternal Data Information BATSHEVA Calculator Estimated Delivery Date Method Current WG Current Estimate 09/04/23 LMP (Certain) 41w 0d Other Estimates 08/27/23 Ultrasound #1 42w 1d Vaginal Delivery Maternal Presentation Maternal Presentation: Active Labor Maternal Presentation: 41 weeks in active labor. pitocin was added for moderate ctx without cervical change that resulted in becoming fully dilated. Operative Information Date of Procedure: 09/11/23 Pre-Operative Diagnosis: see problem list Post-Operative Diagnosis: Surgery / Procedure Performed: Spontaneous Vaginal Delivery Type of Anesthesia: Epidural Estimated Blood Loss: 300 Time of Delivery: 13:16 Findings Description of Procedure: Patient began pushing and delivered the head in the YARED presentation. The head was delivered atraumatically. The anterior and posterior shoulders delivered without complication followed by the rest of the and the infant was placed on the maternal abdomen. Delayed cord clamping was employed for approximately 60 seconds. Cord was clamped and cut and gentle traction was applied to the cord and the placenta delivered spontaneously immediately following it was noted to be intact with three-vessel cord. The perineum and vagina were inspected and noted to have small 1st degree laceration. EBL was 300cc. Patient and tolerated delivery well. Presentation: Vertex Amniotic Membrane Rupture Type: Artificial Amniotic Fluid Description: Clear Placental Delivery Description: Spontaneous Placenta Disposition: [facility] Cord Vessel Description: 3 Vessels Cord Entanglement: None A Gender: Male (1 minute): 8 (5 minute): 9 Delayed Cord Clamping: Yes Post Vaginal Delivery Medications Given After Delivery: IV Pitocin Episiotomy Description: None Laceration: 1st degree Procedures Urinary/Genital [id number]: [id number] Vaginal Delivery [facility]
[2023-09-11] MEDS: Oxytocin 15 Units/NS 250ml 15 UNITS/250 ML IV.SOLN 83 UNITS IV (13:56)
[2023-09-11] MEDS: 0.9% Saline Lock 10 ML Syringe IV (17:31)
[2023-09-11] MEDS: Acetaminophen 500 MG Tablet 1000 MG PO (18:35)
--- NOTE | 2023-09-11 21:05 | PN.OBGYN_ITS ---
Subjective Subjective Patient doing well without complaints. Tolerating PO. Ambulating and voiding without difficulty. Denies chest pain, shortness of breath, calf pain/swelling, fevers, chills, lightheadedness. infant is being transferred to [facility], requesting discharge to go with infant. Objective Data Objective Data Vital Signs: Vital Signs Temp Pulse BP Pulse Ox 98.1 F 87 114/67 97 09/11/23 15:35 09/11/23 15:43 09/11/23 15:35 09/11/23 15:43 Weight: 195 lb Body Mass Index (BMI) 36.8 Intake & Output: Intake and Output for Last 24 Hours 09/09/23 09/10/23 09/11/23 23:59 23:59 23:59 Intake Total 3541.40 / 3541.40 Output Total 901 / 901 Balance 2640.40 / 2640.40 Lab / Micro Data 09/11/23 04:00 Labs: Laboratory Results - last 24 hr 09/11/23 04:00: WBC 10.4, RBC 4.36, Hgb 12.0, Hct 35.9 L, MCV 82.3, MCH 27.5, MCHC 33.4, RDW Std Deviation 39.6, RDW Coeff of Lenin 13.3, Plt Count 234, MPV 10.9, Immature Gran % (Auto) 0.700, Neut % (Auto) 67.7, Lymph % (Auto) 22.6, Falls % (Auto) 7.6, Eos % (Auto) 0.7, Baso % (Auto) 0.7, Absolute Neuts (auto) 7.0, Absolute Lymphs (auto) 2.34, Nucleated RBC % 0, Syphilis Total Ab Non- reactive, Blood Type B POSITIVE, Antibody Screen NEGATIVE Physical Exam Const alert and no apparent distress Chest inspection of chest normal Nipple/Areola: nipples/areola normal Resp normal respiratory effort, normal air movement and no retractions Cardio regular rate and regular rhythm GI normal to inspection, nondistended, normoactive bowel sounds Narrative: normal lochia without clots. Uterus Palpation: uterus fundus firm Extremity normal to inspection and full ROM Skin no rashes or lesions noted Psych mental status grossly normal Assessment & Plan (1) (spontaneous vaginal delivery): COMMENT: IAL 41weeks JOSELUIS Yevgeniy PLAN: Plan s/p PPD # 0 1. routine post delivery care 2. breast feeding- support given. plans on pumping q3 hours 3. rh positive 4. rubella immune 5. desires early d/c due to infant transporting to [place]. no complications.
--- NOTE | 2023-09-11 21:23 | DCINST_ITS ---
Discharge Instructions Diet Discharge Diet: No restrictions Activity Discharge Activity: May Not Drive and May Shower May resume sexual activity in: 6 weeks Weight Bearing Status: Full weight bearing Dressing / Incision Call your doctor if your incision/area has: Sudden Increased Bleeding, Increased Pain/ Swelling and Foul Smelling Discharge Call your doctor if you observe: Fever of 101 or Higher, Numbness or Tingling, Change in Color, Inability to urinate, Inability to have a bowel movement, Using more than 1 pad per hour, Shortness of breath, Dizziness, Fainting spells, Chest pain, Calf discomfort and Uncontrolled pain Follow Up Care Please Follow Up With: Kalee Lerma CNM When: 6 weeks , please call office to make an appointment. Congratulations on the of your baby boy! Test Results: Test results from this visit will be discussed in further detail at your follow- up appointment, if applicable. Discharge Plan Admission Admit Date/Time: 09/11/23 03:30 Attending Provider: Kalee Lerma Primary Care Provider: Care Physician,No Primary Discharge Orders/Prescriptions Prescriptions: No Action DHA 200 mg capsule 200 mg PO DAILY PNV cmb#95-ferrous fumarate-FA [] 28 mg iron- 800 mcg tablet 1 tab PO DAILY Referrals / Follow Up: Care Physician,No Primary [Primary Care Provider] - Disposition Disposition (needs filled in before D/C Order can be placed): Home, Self Care
[2023-09-11] MEDS: Naproxen 500 MG Tablet PO (21:36)
== END 2023-09-11 21:45 | disposition home or self-care (01) | DRG 807 ==
LOC: WPOUT 03:31 → WP 03:31
PROVIDERS: Obstetrics & Gynecology; Admitting Provider Registered Nurse; Referring Provider Registered Nurse; Visit Provider Registered Nurse
DX: O48.0 Post-term pregnancy (principal); Z37.0 Single live birth; O70.0 First degree perineal laceration during delivery; Z3A.41 41 weeks gestation of pregnancy
CPT/HCPCS: 59025; 59050; 85025; 86780; 86850; 86900; 86901; 99221; J7120; A4216; G0378; J2405